=== PATIENT | female | born 1990 ===

== ENCOUNTER 2021-08-02 12:36 | Emergency (ER) | payer OTHER ==
--- NOTE | 2021-08-02 12:58 | ERPHSYRPT ---
- History of Present Illness Time Seen by Provider: 08/02/21 12:55 Source: patient Exam Limitations: no limitations Patient Subjective Stated Complaint: Abdominal pain Triage Nursing Assessment: Patient ambulated back to ED and transferred self to bed. Patient A+O X3. Patient's skin pink, warm and dry. Patient complains of upper abdominal pain that goes into back constant throbbing pain 6/10. Patient complains of diarrhea, N/V. Abdomen soft and round with BS X 4. Physician History: The patient is a 31-year-old female with a past medical significant for anemia and heavy vaginal bleeding presents with a chief complaint of epigastric pain. Onset was around 8:00 this morning. She reported sleeping and was awoke with the pain. The pain is described as a sharp pain that radiates to her back and has somewhat subsided since its onset and she feels that pushing on her abdominal wall makes the pain better. She endorsed having 3 episodes of watery diarrhea and an episode of nausea vomiting. She denies previous episodes of pain, specifically with eating or any known history of biliary colic. She denies fevers or chills. She reportedly follows with a accessories repairer oncologist for her anemia and is scheduled to receive outpatient iron infusions and reportedly was on iron supplementation in the past but she states that her "body cannot absorb it." She called her accessories repairer/oncologist clinic today and was told to come to the emergency department for "ultrasound." Associated Symptoms: nausea, vomiting, abdominal pain Allergies/Adverse Reactions: ketorolac [From Toradol] Allergy (Verified 08/02/21 12:44) Sulfa (Sulfonamide Antibiotics) Allergy (Verified 08/02/21 12:44) sulfamethoxazole [From Bactrim] Allergy (Verified 08/02/21 12:44) trimethoprim [From Bactrim] Allergy (Verified 08/02/21 12:44) Hx Influenza Vaccination/Date Given: No Hx Pneumococcal Vaccination/Date Given: No Immunizations Up to Date: Yes Travel Risk - International Travel Have you traveled outside of the country in past 3 weeks: No - Coronavirus Screening Are you exhibiting any of the following symptoms?: No Close contact with a COVID-19 positive Pt in past 14-21 Days: No - Vaccine Status Have you recieved a Covid-19 vaccination: No - Review of Systems Constitutional: No Fever, No Chills Eyes: No Symptoms Ears, Nose, & Throat: No Symptoms Respiratory: No Symptoms Abdominal/Gastrointestinal: Abdominal Pain, Nausea, Vomiting, Diarrhea Genitourinary Symptoms: No Symptoms Musculoskeletal: No Symptoms Skin: No Symptoms Neurological: No Symptoms Hematologic/Lymphatic: Anemia All Other Systems: Reviewed and Negative - Past Medical History Neurological History: No Pertinent History ENT History: No Pertinent History Cardiac History: No Pertinent History Respiratory History: No Pertinent History Endocrine Medical History: No Pertinent History Musculoskeletal History: No Pertinent History GI Medical History: No Pertinent History History: No Pertinent History Psycho-Social History: No Pertinent History Female Reproductive Disorders: Menstrual Problems Other Medical History: Chronic blood loss through menstration. Anemia with iron defiency - Past Surgical History Past Surgical History: Yes Neuro Surgical History: No Pertinent History Cardiac: No Pertinent History Respiratory: No Pertinent History Gastrointestinal: No Pertinent History Genitourinary: No Pertinent History Musculoskeletal: Orthopedic Surgery Female Surgical History: Section, Tubal Ligation Other Surgical History: Right hand 2001. benign fibroids removed from right breast 2011. T+A 2015. 2016 and 2019 with tubal ligation - Social History Smoking Status: Never smoker Exposure to second hand smoke: Yes Drug Use: none Patient Lives Alone: No - Female History Hx Last Menstrual Period: July 24, 2021 Hx Now: No - Nursing Vital Signs Nursing Vital Signs: Initial Vital Signs Temperature 97.1 F 08/02/21 12:45 Pulse Rate 106 H 08/02/21 12:45 Respiratory Rate 18 08/02/21 12:45 Blood Pressure 142/89 08/02/21 12:45 O2 Sat by Pulse Oximetry 97 08/02/21 12:45 Pain Scale Pain Intensity 0 - Physical Exam General Appearance: no apparent distress, alert, obese Eye Exam: No scleral icterus Neck Exam: non-tender, supple Respiratory Exam: normal breath sounds, lungs clear, airway intact, No respiratory distress Cardiovascular Exam: regular rate/rhythm, normal heart sounds, normal peripheral pulses, capillary refill <2 sec, No murmur, No friction rub Gastrointestinal/Abdomen Exam: soft, tenderness, No mass, No guarding, No rebound Pelvic Exam: not done Rectal Exam: deferred Back Exam: normal inspection Extremity Exam: normal inspection Neurologic Exam: alert, oriented x 3, cooperative Skin Exam: normal color, warm, dry, No rash, No petechiae Lymphatic Exam: No adenopathy SpO2: 97 O2 Delivery: Room Air - Course Nursing assessment & vital signs reviewed: Yes EKG Interpreted by Me: RATE (Kieler-paced rhythm, vent rate 60 bpm) Ordered Tests: Active Orders 24 hr Category Date Time Status IV Insertion STAT Care 08/02/21 13:04 Active GALLBLADDER [US] Stat Exams 08/02/21 13:26 Ordered BMP Stat Lab 08/02/21 13:29 Completed CBC W DIFF Stat Lab 08/02/21 13:29 Completed HCG,QUALITATIVE URINE Stat Lab 08/02/21 13:14 Completed Hepatic Function Panel Stat Lab 08/02/21 13:29 Completed LIPASE Stat Lab 08/02/21 13:29 Completed UA W/RFX UR CULTURE Stat Lab 08/02/21 13:14 Completed Medication Summary Discontinued Medications Generic Name Dose Route Start Last Admin Trade Name Freq PRN Reason Stop Dose Admin Sodium Chloride 1,000 mls @ 999 mls/hr 08/02/21 13:04 08/02/21 13:25 Sodium Chloride 0.9% 1000 Ml IV 08/02/21 14:04 Not Given .Q1H1M STA Ketorolac Tromethamine 30 mg 08/02/21 13:04 08/02/21 13:26 Ketorolac Tromethamine 30 Mg/Ml Inj IV 08/02/21 13:05 Not Given STAT ONE Ondansetron HCl 4 mg 08/02/21 13:04 08/02/21 13:26 Ondansetron Hcl 4 Mg/2 Ml Vial IV 08/02/21 13:05 Not Given STAT ONE Pantoprazole Sodium 40 mg 08/02/21 13:04 08/02/21 13:25 Pantoprazole 40 Mg Vial IV 08/02/21 13:05 Not Given STAT ONE Pantoprazole Sodium 40 mg 08/02/21 14:08 08/02/21 14:21 Protonix (Pantoprazole) 40 Mg Tablet PO 08/02/21 14:09 40 mg STAT ONE Administration Pantoprazole Sodium Confirm 08/02/21 14:21 Protonix (Pantoprazole) 40 Mg Tablet Administered 08/02/21 14:22 Dose 40 mg .ROUTE .STK-MED ONE Lab/Rad Data: Laboratory Result Diagrams 08/02/21 13:29 08/02/21 13:29 Laboratory Results 08/02/21 08/02/21 08/02/21 Range/Units 13:29 13:29 13:14 WBC 10.0 (4.0-10.5) K/mm3 RBC 5.70 H (4.1-5.4) M/mm3 Hgb 12.4 (12.0-16.0) gm/dl Hct 41.4 (35-47) % MCV 72.6 L (78-100) fl MCH 21.8 L (26-32) pg MCHC 30.0 L (32-36) g/dl RDW 17.3 H (11.5-14.0) % Plt Count 311 (150-450) K/mm3 MPV 10.3 (7.5-11.0) fl Gran % 68.7 H (36.0-66.0) % Eos # (Auto) 0.32 (0-0.5) Absolute Lymphs (auto) 2.14 (1.0-4.6) Absolute Monos (auto) 0.66 (0.0-1.3) Lymphocytes % 21.4 L (24.0-44.0) % Monocytes % 6.6 (0.0-12.0) % Eosinophils % 3.2 (0.00-5.0) % Basophils % 0.1 (0.0-0.4) % Absolute Granulocytes 6.89 (1.4-6.9) Basophils # 0.01 (0-0.4) Sodium 140 (137-145) mmol/L Potassium 4.0 (3.5-5.1) mmol/L Chloride 105 (98-107) mmol/L Carbon Dioxide 25 (22-30) mmol/L Anion Gap 14.0 (5-15) MEQ/L BUN 13 (7-17) mg/dL Creatinine 0.75 (0.52-1.04) mg/dL Estimated GFR > 60.0 ML/MIN Glucose 102 (74-106) mg/dL Calcium 9.5 (8.4-10.2) mg/dL Total Bilirubin 0.50 (0.2-1.3) mg/dL Direct Bilirubin 0.3 (0.0-0.4) mg/dL AST 27 (14-36) U/L ALT 20 (0-35) U/L Alkaline Phosphatase 130 H (38-126) U/L Serum Total Protein 8.5 H (6.3-8.2) g/dL Albumin 4.5 (3.5-5.0) g/dL Lipase 72 (23-300) U/L Urine Color (YELLOW) Urine Appearance (CLEAR) Urine pH (5-6) Ur Specific [place] (1.005-1.025) Urine Protein (Negative) Urine Ketones (NEGATIVE) Urine Blood (0-5) Jaison/ul Urine Nitrite (NEGATIVE) Urine Bilirubin (NEGATIVE) Urine Urobilinogen (0-1) mg/dL Ur Leukocyte Esterase (NEGATIVE) Urine WBC (Auto) (0-5) /HPF Urine RBC (Auto) (0-2) /HPF U Epithel Cells (Auto) (FEW) /HPF Urine Bacteria (Auto) (NEGATIVE) /HPF Urine Mucus (Auto) (NEGATIVE) /HPF Urine Culture Reflexed (NO) Urine Glucose (NEGATIVE) mg/dL Urine HCG, Qual NEGATIVE (Negative) 08/02/21 Range/Units 13:14 WBC (4.0-10.5) K/mm3 RBC (4.1-5.4) M/mm3 Hgb (12.0-16.0) gm/dl Hct (35-47) % MCV (78-100) fl MCH (26-32) pg MCHC (32-36) g/dl RDW (11.5-14.0) % Plt Count (150-450) K/mm3 MPV (7.5-11.0) fl Gran % (36.0-66.0) % Eos # (Auto) (0-0.5) Absolute Lymphs (auto) (1.0-4.6) Absolute Monos (auto) (0.0-1.3) Lymphocytes % (24.0-44.0) % Monocytes % (0.0-12.0) % Eosinophils % (0.00-5.0) % Basophils % (0.0-0.4) % Absolute Granulocytes (1.4-6.9) Basophils # (0-0.4) Sodium (137-145) mmol/L Potassium (3.5-5.1) mmol/L Chloride (98-107) mmol/L Carbon Dioxide (22-30) mmol/L Anion Gap (5-15) MEQ/L BUN (7-17) mg/dL Creatinine (0.52-1.04) mg/dL Estimated GFR ML/MIN Glucose (74-106) mg/dL Calcium (8.4-10.2) mg/dL Total Bilirubin (0.2-1.3) mg/dL Direct Bilirubin (0.0-0.4) mg/dL AST (14-36) U/L ALT (0-35) U/L Alkaline Phosphatase (38-126) U/L Serum Total Protein (6.3-8.2) g/dL Albumin (3.5-5.0) g/dL Lipase (23-300) U/L Urine Color PRERNA (YELLOW) Urine Appearance CLOUDY (CLEAR) Urine pH 5.0 (5-6) Ur Specific [place] 1.032 (1.005-1.025) Urine Protein 100 (Negative) Urine Ketones TRACE (NEGATIVE) Urine Blood NEGATIVE (0-5) Jaison/ul Urine Nitrite NEGATIVE (NEGATIVE) Urine Bilirubin NEGATIVE (NEGATIVE) Urine Urobilinogen NEGATIVE (0-1) mg/dL Ur Leukocyte Esterase NEGATIVE (NEGATIVE) Urine WBC (Auto) 6-10 (0-5) /HPF Urine RBC (Auto) 0-2 (0-2) /HPF U Epithel Cells (Auto) MANY (FEW) /HPF Urine Bacteria (Auto) RARE (NEGATIVE) /HPF Urine Mucus (Auto) MANY (NEGATIVE) /HPF Urine Culture Reflexed NO (NO) Urine Glucose NEGATIVE (NEGATIVE) mg/dL Urine HCG, Qual (Negative) - Progress Progress Note: 08/02/21 13:15 The patient's nurse reports that the patient is now refusing IV access after being stuck twice and does not want any IV medications. 08/02/21 14:09 The patient is now requesting a "antacid" according to the patient's nurse. Have ordered p.o. Protonix to be administered. 08/02/21 14:30 I reassessed the patient to find that she was sleeping and lying left lateral recumbent and in no obvious distress. She states she is feeling better and I updated her with her lab results and the fact that the biomedical engineering technologist is currently on her way in to do a testicular ultrasound another patient and I would try to see if the tech would be willing to perform a right upper quadra nt/gallbladder ultrasound to rule out any evidence of cholelithiasis. 08/02/21 15:13 The biomedical engineering technologist is stating the patient has a 2 to 3 mm gallstone that does not appear to be impacted in the CBD appears to be 7 mm and the gallbladder wall is borderline thickened however there is no evidence of pericholecystic fluid. She has no transaminitis and her T bili and direct bilirubin are within normal limits. She seems to be relatively comfortable and I suspect her pain may be secondary to biliary colic and/or gastritis and/or the start of a gastroenteritis. I think the patient can be discharged home to follow-up with general surgery as an outpatient to pursue elective cholecystectomy. ED return precautions for biliary colic will be given. 08/02/21 15:31 The patient is currently pain-free and was updated with her ultrasound findings. She was given ED return precautions for biliary colic/cholecystitis and instructed to follow-up with general surgery as an outpatient. She agreed with and verbally understood the discharge plan and was comfortable with being discharged home. - Departure Departure Disposition: In-patient Admission Clinical Impression: Biliary colic, Epigastric pain, Nausea and vomiting, Diarrhea Condition: Good Critical Care Time: No Referrals: CAMILLE PINTO [Primary Care Provider] - Follow up/PCP as directed BARBER GUIDRY MD [ACTIVE STAFF] - Follow up/PCP as directed Instructions: Acute Abdomen (Belly Pain), Adult (DC), Gallstones (DC) Prescriptions: Sennosides [Senna] 8.6 mg PO QHS #30 tablet Hydrocodone/Acetaminophen [Hydrocodone-Acetamin 5-325 mg] 1 - 2 tab PO Q6HPRN PRN #16 tablet MDD 4 PRN Reason: Pain Ondansetron ODT 4 MG [Zofran Odt 4 mg] 4 mg PO Q6H PRN PRN #20 PRN Reason: Nausea
[2021-08-02] MEDS ORDERED: Sodium Chloride 0.9% 1000 ML 1,000 ML IV STA (13:04)
[2021-08-02] MEDS ORDERED: PROTONIX 40 MG IV IV ONE (13:04)
[2021-08-02] MEDS ORDERED: TORAdol 30 mg Injection IV ONE (13:04)
[2021-08-02] MEDS ORDERED: Zofran 4 MG/2 ML VIAL IV ONE (13:04)
[2021-08-02 13:40] LABS: Absolute Neutrophil Ct (ANC) 6.89 (1.4-6.9); Basophil (Absolute #) 0.01 (0-0.4); Eosinophil % 3.2 % (0.00-5.0); Eosinophil (Absolute #) 0.32 (0-0.5); Hematocrit 41.4 % (35-47); Hemoglobin 12.4 gm/dl (12.0-16.0); Lymphocyte (Absolute #) 2.14 (1.0-4.6); Lymphocytes % 21.4 % (24.0-44.0); Mean Cell Volume 72.6 fl (78-100); Mean Corpuscular Hemoglobin 21.8 pg (26-32); Mean Platelet Volume 10.3 fl (7.5-11.0); Monocyte (Absolute #) 0.66 (0.0-1.3); Monocytes % 6.6 % (0.0-12.0); Neutrophil % 68.7 % (36.0-66.0); Platelet Count 311 K/mm3 (150-450); Red Cell Distribution Width 17.3 % (11.5-14.0)
[2021-08-02 13:53] LABS: ALBUMIN 4.5 g/dL (3.5-5.0); ALKALINE PHOSPHATASE 130 U/L (38-126); BLOOD UREA NITROGEN 13 mg/dL (7-17); CHLORIDE 105 mmol/L (98-107); Calcium 9.5 mg/dL (8.4-10.2); Carbon Dioxide 25 mmol/L (22-30); Creatinine 1 0.75 mg/dL (0.52-1.04); Direct Bilirubin 0.3 mg/dL (0.0-0.4); EST GLOMERULAR FILTRATION RATE > 60.0 ML/MIN; Glucose 102 mg/dL (74-106); LIPASE 72 U/L (23-300); SGOT/AST 27 U/L (14-36); SGPT/ALT 20 U/L (0-35); SODIUM 140 mmol/L (137-145); Total Protein 8.5 g/dL (6.3-8.2)
[2021-08-02 13:59] LABS: Appearance CLOUDY (CLEAR); Bacteria RARE /HPF (NEGATIVE); Bilirubin NEGATIVE (NEGATIVE); Blood NEGATIVE Ery/ul (0-5); Epithelial Cells MANY /HPF (FEW); Glucose NEGATIVE (NEGATIVE); Ketones TRACE (NEGATIVE); Leukocyte Esterase NEGATIVE (NEGATIVE); Mucus MANY /HPF (NEGATIVE); Nitrite NEGATIVE (NEGATIVE); Protein,Urine Dip 100 (Negative); RBC 0-2 /HPF (0-2); Specific Gravity 1.032 (1.005-1.025); Urobilinogen NEGATIVE mg/dL (0-1)
[2021-08-02] MEDS ORDERED: Protonix 40MG Tablet PO ONE (14:08)
[2021-08-02] MEDS ORDERED: Protonix 40MG Tablet ONE (14:21)
[2021-08-02 15:15] VITALS: BP 118/53; PULSE 83
[2021-08-02 15:20] VITALS: O2SAT 97
--- NOTE | 2021-08-02 19:45 | XRAY ---
Indication: Right upper quadrant pain. Nausea. Two-dimensional gallbladder sonogram performed. Comparison: None Gallbladder partially contracted with a 2 cm gallstone. Gallbladder wall thickening measuring 3.1 mm possibly from incomplete distention. No pericholecystic fluid. Common bile duct measures 7.4 mm, upper limits normal. No intrahepatic biliary distention. Remaining visualized liver, pancreas and right kidney are sonographically unremarkable. Right kidney measures 11.6 cm in length. Impression: Partially contracted gallbladder with 2 cm gallstone and wall thickening. Rule out chronic cholecystitis. Comment: Preliminary report was given.
== END 2021-08-02 15:31 | disposition home or self-care (01) ==
LOC: ED 12:36
DX: K80.50 Calculus of bile duct without cholangitis or cholecystitis without obstruction (principal); R10.13 Epigastric pain; R11.2 Nausea with vomiting, unspecified; R19.7 Diarrhea, unspecified; D50.0 Iron deficiency anemia secondary to blood loss (chronic); N92.0 Excessive and frequent menstruation with regular cycle; Z79.891 Long term (current) use of opiate analgesic
CPT/HCPCS: 36415; 76705; 80048; 80076; 81001; 83690; 84703; 85025; 99284; A9270-GY